=== PATIENT | male | born 1975 | race Caucasian/White ===

== ENCOUNTER 2017-06-17 12:02 | Emergency (ER) | payer MEDICAID ==
[~2017-06-17] VITALS: Ht 167.6 cm; Wt 85.1 kg
[2017-06-17 15:21] VITALS: BP 127/89
== END 2017-06-17 15:22 | disposition home or self-care (01) ==
LOC: ED 14:10
DX: S00.12XA Contusion of left eyelid and periocular area, initial encounter (principal); F10.129 Alcohol abuse with intoxication, unspecified; W01.0XXA Fall on same level from slipping, tripping and stumbling without subsequent striking against object, initial encounter; Y93.89 Activity, other specified; Y92.89 Other specified places as the place of occurrence of the external cause; Y99.8 Other external cause status
CPT/HCPCS: 70450; 70486; 72125; 99284

== ENCOUNTER 2018-05-16 06:04 | Emergency (ER) | payer SELFPAY ==
[~2018-05-16 06:04] MED LIST: CITA10TA4 PO
[2018-05-16 06:14] VITALS: BP 127/95
[2018-05-16] MEDS ORDERED: DIPH,PERTUSS(ACELL),TET VAC/PF 0.5 ML IM-VACC ONE (06:30)
== END 2018-05-16 07:52 | disposition home or self-care (01) ==
LOC: ED 07:45
DX: S43.121A Dislocation of right acromioclavicular joint, 100%-200% displacement, initial encounter (principal); S00.212A Abrasion of left eyelid and periocular area, initial encounter; F17.200 Nicotine dependence, unspecified, uncomplicated; Y04.2XXA Assault by strike against or bumped into by another person, initial encounter; Y93.89 Activity, other specified; Y92.410 Unspecified street and highway as the place of occurrence of the external cause; Y99.8 Other external cause status
CPT/HCPCS: 71046; 93005; 99284

== ENCOUNTER 2018-08-13 13:51 | Emergency (ER) | payer SELFPAY ==
[~2018-08-13] VITALS: Ht 167.6 cm; Wt 76.0 kg
[2018-08-13] MEDS ORDERED: DIAZEPAM 5 MG TABLET ONE (14:05)
[2018-08-13] MEDS ORDERED: DIAZEPAM 5 MG TABLET PO ONE (14:30)
== END 2018-08-13 15:00 | disposition home or self-care (01) ==
LOC: ED 14:45
DX: F41.1 Generalized anxiety disorder (principal); F32.9 Major depressive disorder, single episode, unspecified; F17.200 Nicotine dependence, unspecified, uncomplicated
CPT/HCPCS: 99284

== ENCOUNTER 2018-11-09 10:06 | Emergency (ER) | payer SELFPAY ==
[~2018-11-09] VITALS: Ht 167.6 cm; Wt 76.9 kg
[2018-11-09 10:13] VITALS: BP 103/69
[2018-11-09] MEDS ORDERED: DEXAMETHASONE 4 MG TABLET ONE (11:08)
--- NOTE | 2018-11-09 11:13 | NUR ---
Patient/Caregiver given discharge instructions and they have confirmed that they understand the instructions. Patient ambulatory with steady gait.
[2018-11-09] MEDS ORDERED: DEXAMETHASONE 4 MG TABLET PO ONE (11:30)
== END 2018-11-09 11:30 | disposition home or self-care (01) ==
LOC: ED 11:00
DX: J20.9 Acute bronchitis, unspecified (principal); Z91.013 Allergy to seafood
CPT/HCPCS: 71046; 99283

== ENCOUNTER 2018-11-23 13:57 | Emergency (ER) | payer MEDICAID ==
[~2018-11-23] VITALS: Ht 167.6 cm; Wt 81.0 kg
[2018-11-23 14:00] VITALS: BP 109/66
== END 2018-11-23 14:42 | disposition home or self-care (01) ==
LOC: ED 14:24
DX: T69.022A Immersion foot, left foot, initial encounter (principal); T69.021A Immersion foot, right foot, initial encounter; F17.200 Nicotine dependence, unspecified, uncomplicated; X58.XXXA Exposure to other specified factors, initial encounter; Y93.89 Activity, other specified; Y92.89 Other specified places as the place of occurrence of the external cause; Y99.8 Other external cause status
CPT/HCPCS: 99283

== ENCOUNTER 2018-12-07 07:48 | Emergency (ER) | payer MEDICAID ==
[~2018-12-07] VITALS: Ht 167.6 cm; Wt 80.0 kg
[2018-12-07] MEDS ORDERED: TRAZ50TA66 PO (08:28)
[2018-12-07] MEDS ORDERED: HYDR10TA4 PO (08:28)
[2018-12-07] MEDS ORDERED: SILVER SULF. CRM 1% , 25GM TP ONE (08:30)
[2018-12-07] MEDS ORDERED: DIPH,PERTUSS(ACELL),TET VAC/PF 0.5 ML IM-VACC ONE ×2 (08:30→08:54)
[2018-12-07] MEDS ORDERED: SILVER SULF. CRM 1% , 25GM ONE (08:55)
--- NOTE | 2018-12-07 10:00 | NUR ---
given silverdene to patient before dc home after [facility] cleaned and applied splint pt understood dc instruction pt will come back for recheck wound by erp pt up ambulated to check out vss
[2018-12-07 10:01] VITALS: BP 118/74
== END 2018-12-07 10:03 | disposition home or self-care (01) ==
LOC: ED 09:50
DX: T23.352A Burn of third degree of left palm, initial encounter (principal); T31.0 Burns involving less than 10% of body surface; F41.1 Generalized anxiety disorder; F32.9 Major depressive disorder, single episode, unspecified; Z59.0 Homelessness; X08.8XXA Exposure to other specified smoke, fire and flames, initial encounter; Y93.89 Activity, other specified; Y92.89 Other specified places as the place of occurrence of the external cause; Y99.8 Other external cause status
CPT/HCPCS: 16020; 29125; 90471; 90715; 99284

== ENCOUNTER 2018-12-09 09:41 | Emergency (ER) | payer MEDICAID ==
[~2018-12-09] VITALS: Ht 170.2 cm; Wt 79.2 kg
[~2018-12-09 09:41] MED LIST changes: +HYDR10TA4 PO; +TRAZ50TA66 PO
[2018-12-09 09:50] VITALS: BP 98/67
[2018-12-09] MEDS ORDERED: BACITRACIN ZINC OINT 500U/GM, 0.9 GM ONE (10:31)
--- NOTE | 2018-12-09 10:36 | NUR ---
Left hand crenshaw cleansed with soap and water and dried, bacitracin applied and wrapped with gauze. Patient tolerated well and denies pain at this time. Blisters intact, no erythema, no open skin.
--- NOTE | 2018-12-09 10:43 | NUR ---
Discharge instructions discussed with patient including when to return to emergency department, verbalizes understanding. Patient ambulates with steady gait to discharge desk in no acute distress.
== END 2018-12-09 10:45 | disposition home or self-care (01) ==
LOC: ED 10:18
DX: T23.252A Burn of second degree of left palm, initial encounter (principal); F32.9 Major depressive disorder, single episode, unspecified; F17.200 Nicotine dependence, unspecified, uncomplicated; X08.8XXA Exposure to other specified smoke, fire and flames, initial encounter; Y93.89 Activity, other specified; Y92.89 Other specified places as the place of occurrence of the external cause; Y99.8 Other external cause status
CPT/HCPCS: 16020; 99284

== ENCOUNTER 2019-07-23 06:54 | Emergency (ER) | payer MEDICAID ==
[~2019-07-23] VITALS: Ht 167.6 cm; Wt 79.4 kg
[2019-07-23 06:58] VITALS: BP 110/66
--- NOTE | 2019-07-23 07:34 | NUR ---
PA AT BEDSIDE REMOVING PACKING FROM WOUND RIGHT FOREARM
--- NOTE | 2019-07-23 07:53 | NUR ---
RIGHT FOREARM WOUND IRRIGATED WITH 500 ML NS.
--- NOTE | 2019-07-23 08:24 | NUR ---
AFTER WOUND REPACKED BY PA, REDRESSED WITH NONSTICK DRESSING AND DC GIVEN. PT AMBULATED TO DISCHARGE WINDOW, STEADY GAIT.
== END 2019-07-23 08:26 | disposition home or self-care (01) ==
LOC: ED 08:11
DX: L02.413 Cutaneous abscess of right upper limb (principal); F32.9 Major depressive disorder, single episode, unspecified; F41.1 Generalized anxiety disorder; F17.210 Nicotine dependence, cigarettes, uncomplicated
CPT/HCPCS: 99283

== ENCOUNTER 2019-07-25 09:42 | Emergency (ER) | payer MEDICAID ==
[~2019-07-25] VITALS: Ht 172.7 cm; Wt 81.0 kg
--- NOTE | 2019-07-25 10:10 | NUR ---
NA X 1
[2019-07-25 10:27] VITALS: BP 118/75
--- NOTE | 2019-07-25 10:35 | NUR ---
PATIENT BROUGHT BACK FROM TRIAGE FOR RIGHT ARM ABCESS RECHECK.
== END 2019-07-25 11:17 ==
LOC: ED 10:57
DX: Z48.01 Encounter for change or removal of surgical wound dressing (principal); F17.210 Nicotine dependence, cigarettes, uncomplicated
CPT/HCPCS: 99283

== ENCOUNTER 2019-07-27 10:12 | Emergency (ER) | payer MEDICAID ==
[~2019-07-27] VITALS: Ht 167.6 cm; Wt 80.3 kg
[2019-07-27 10:13] VITALS: BP 138/82
--- NOTE | 2019-07-27 10:23 | NUR ---
THIS IS A 44 YO MALE COMING IN FOR A REPACKING AND BANDAGING OF WOUND. PA IN ROOM PROCEEDING WITH WOUND CLEANING AND PACKING. PATIENT RESTING ON GURNEY, DENIES ANY NEEDS AT THIS TIME.
== END 2019-07-27 10:36 ==
LOC: ED 10:25
DX: L02.413 Cutaneous abscess of right upper limb (principal); F17.200 Nicotine dependence, unspecified, uncomplicated
CPT/HCPCS: 99283

== ENCOUNTER 2019-07-29 18:57 | Emergency (ER) | payer MEDICAID ==
[~2019-07-29] VITALS: Ht 170.2 cm; Wt 80.0 kg
[2019-07-29 19:03] VITALS: BP 108/66
--- NOTE | 2019-07-29 19:34 | NUR ---
PT RESTING IN BED. NO DISTRESS NOTED.
== END 2019-07-29 19:41 | disposition home or self-care (01) ==
LOC: ED 19:35
DX: L02.413 Cutaneous abscess of right upper limb (principal); F32.9 Major depressive disorder, single episode, unspecified; F17.200 Nicotine dependence, unspecified, uncomplicated
CPT/HCPCS: 99283

== ENCOUNTER 2019-08-28 14:32 | Emergency (ER) | payer MEDICAID ==
[~2019-08-28] VITALS: Ht 170.2 cm; Wt 80.2 kg
[2019-08-28 14:35] VITALS: BP 127/67
--- NOTE | 2019-08-28 14:54 | NUR ---
PT C/O ABCESS TO RFA. PT NOTICED PAIN TO THAT AREA X1 WEEK, BUT NOTICED SWOLLEN, REDDENED AREA TODAY. HX IV METH. LAST USED IV METH 1 WEEK AGO. CALL LIGHT IN REACH.
[2019-08-28] MEDS ORDERED: LIDOCAINE 1%-EPI 1:100K, 20ML SQ ONE (15:00)
[2019-08-28] MEDS ORDERED: KETOROLAC 30 MG/1 ML IM ONE (15:00)
[2019-08-28] MEDS ORDERED: LIDOCAINE 1%-EPI 1:100K, 20ML ONE (15:02)
[2019-08-28] MEDS ORDERED: KETOROLAC 30 MG/1 ML ONE (15:02)
--- NOTE | 2019-08-28 15:08 | NUR ---
MEDS ADMIN PER NOV. XRAY DONE. LIDOCAINE PULLED FOR PROVIDER USE.
[2019-08-28] MEDS ORDERED: BUPIVACAINE/PF 0.25% INFIL ONE (15:30)
[2019-08-28] MEDS ORDERED: BUPIVACAINE 0.25% ONE (15:35)
--- NOTE | 2019-08-28 15:35 | NUR ---
MEDS PULLED FOR PROVIDER ADMIN.
--- NOTE | 2019-08-28 16:00 | NUR ---
PROVIDER AT BEDSIDE. FOR I&D AND FINGER REDUCTION
[2019-08-28] MEDS ORDERED: HYDROcodone/APAP 5/325 TABLET PO ONE (16:09)
[2019-08-28] MEDS ORDERED: HYDROcodone/APAP 5/325 TABLET ONE (16:13)
--- NOTE | 2019-08-28 16:15 | NUR ---
MEDS ADMINISTERED PER NOV.
== END 2019-08-28 16:24 | disposition home or self-care (01) ==
LOC: ED 15:12
DX: S62.615A Displaced fracture of proximal phalanx of left ring finger, initial encounter for closed fracture (principal); L02.413 Cutaneous abscess of right upper limb; F17.200 Nicotine dependence, unspecified, uncomplicated; X58.XXXA Exposure to other specified factors, initial encounter; Y93.89 Activity, other specified; Y92.89 Other specified places as the place of occurrence of the external cause; Y99.8 Other external cause status
CPT/HCPCS: 10060; 26725; 73140; 96372; 99284; J1885

== ENCOUNTER 2019-08-30 08:00 | Emergency (ER) | payer MEDICAID ==
[~2019-08-30] VITALS: Ht 170.2 cm; Wt 82.4 kg
[2019-08-30 08:08] VITALS: BP 116/71
--- NOTE | 2019-08-30 08:34 | NUR ---
PT HERE FOR WOUND RECHECK, PACKING PLACED IN ABCESS 2 DAYS AGO WAS TOLD TO RETURN. ERPROVIDER IN TO [facility] PT. PROVIDED PROVIDER WITH SUPPLIED, HE IS TO REMOVE SUTURES AND PACKING
== END 2019-08-30 09:02 | disposition home or self-care (01) ==
LOC: ED 08:23
DX: L02.413 Cutaneous abscess of right upper limb (principal); F41.1 Generalized anxiety disorder; Z76.0 Encounter for issue of repeat prescription
CPT/HCPCS: 99283

== ENCOUNTER 2019-09-01 16:00 | Emergency (ER) | payer MEDICAID ==
[~2019-09-01] VITALS: Ht 170.2 cm; Wt 81.0 kg
[2019-09-01 16:02] VITALS: BP 115/74
--- NOTE | 2019-09-01 16:12 | NUR ---
PT HERE TO GET WOUND RECHECKED, STATED MISSED IV DRUG USE APPROX. 2 WEEKS AGO. PT STATES HAS NOT BEEN ON ABX.
--- NOTE | 2019-09-01 16:36 | NUR ---
Patient/Caregiver given discharge instructions and they have confirmed that they understand the instructions. Patient ambulatory with steady gait.
== END 2019-09-01 16:38 | disposition home or self-care (01) ==
LOC: ED 16:30
DX: S62.605A Fracture of unspecified phalanx of left ring finger, initial encounter for closed fracture (principal); L02.512 Cutaneous abscess of left hand; F10.10 Alcohol abuse, uncomplicated; F15.10 Other stimulant abuse, uncomplicated; F17.200 Nicotine dependence, unspecified, uncomplicated; Z72.9 Problem related to lifestyle, unspecified; Z75.9 Unspecified problem related to medical facilities and other health care; Z91.14 Patient's other noncompliance with medication regimen; Y90.9 Presence of alcohol in blood, level not specified
CPT/HCPCS: 99283

== ENCOUNTER 2019-09-04 09:27 | Emergency (ER) | payer MEDICAID ==
[~2019-09-04] VITALS: Ht 167.6 cm; Wt 81.0 kg
[2019-09-04 09:35] VITALS: BP 119/72
--- NOTE | 2019-09-04 09:49 | NUR ---
PT HERE FOR PACKING REMOVAL OF ABSCESS. STATES HE WAS UNABLE TO FILL ABX WHEN HE WAS LAST HERE.
[2019-09-04] MEDS ORDERED: SULFAMETH./TRIMETHOPRIM DS 800MG/160MG TABLET ONE (10:09)
[2019-09-04] MEDS ORDERED: CEPHALEXIN 500 MG CAPSULE ONE (10:09)
[2019-09-04] MEDS ORDERED: CEPHALEXIN 500 MG CAPSULE PO ONE (10:30)
[2019-09-04] MEDS ORDERED: SULFAMETH./TRIMETHOPRIM DS 800MG/160MG TABLET PO ONE (10:30)
== END 2019-09-04 10:31 | disposition home or self-care (01) ==
LOC: ED 10:25
DX: Z48.01 Encounter for change or removal of surgical wound dressing (principal)
CPT/HCPCS: 99283

== ENCOUNTER 2020-03-05 03:40 | Emergency (ER) | payer MEDICAID ==
[~2020-03-05] VITALS: Ht 167.6 cm; Wt 70.0 kg
[~2020-03-05 03:40] MED LIST changes: +HYDR-2995 PO; -HYDR10TA4 PO
[2020-03-05 03:41] VITALS: BP 123/81
[2020-03-05] MEDS ORDERED: LORazepam 1MG TABLET PO ONE (05:00)
== END 2020-03-05 05:14 | disposition home or self-care (01) ==
LOC: ED 04:53
DX: F10.10 Alcohol abuse, uncomplicated (principal); F15.10 Other stimulant abuse, uncomplicated; R45.1 Restlessness and agitation; R41.1 Anterograde amnesia; Z72.0 Tobacco use; Y90.0 Blood alcohol level of less than 20 mg/100 ml
CPT/HCPCS: 99283

== ENCOUNTER 2020-04-16 22:23 | Emergency (ER) | payer MEDICAID ==
[2020-04-16] MEDS ORDERED: SODIUM CHLORIDE FLUSH 10ML SYR IVF ONE (23:30)
[2020-04-16] MEDS ORDERED: SODIUM CHLORIDE 0.9% 1,000ML IVBOLUS ONE (23:30)
[2020-04-16 23:42] LABS: BASOPHILS # (AUTO) 0.04 x10^3/uL (0-0.1); BASOPHILS % (AUTO) 1 % (0-1); EOSINOPHILS # (AUTO) 0.06 x10^3/uL (0-0.4); EOSINOPHILS % (AUTO) 1 % (1-7); LYMPHOCYTES # (AUTO) 2.61 x10^3/uL (1-3.4); LYMPHOCYTES % (AUTO) 29 % (22-44); MD NO; MEAN CORPUSCULAR HEMOGLOBIN 30.8 pg (27.5-34.5); MEAN CORPUSCULAR HGB CONC 33.5 g/dL (33.2-36.2); MEAN PLATELET VOLUME 8.4 fL (7.4-10.4); MONOCYTES # (AUTO) 0.91 x10^3/uL (0.2-0.8); MONOCYTES % (AUTO) 10 % (2-9); NEUTROPHILS # (AUTO) 5.46 x10^3/uL (1.8-6.8); NEUTROPHILS % (AUTO) 60 % (42-75); PLATELET COUNT 204 x10^3/uL (130-400); RED BLOOD COUNT 4.55 x10^6/uL (4.38-5.82); RED CELL DISTRIBUTION WIDTH 14.2 % (9.4-14.8)
[2020-04-17 00:04] LABS: ALANINE AMINOTRANSFERASE 221 U/L (12-78); ALBUMIN 3.8 g/dL (3.4-5.0); ANION GAP 6 mmol/L (5-15); CALCIUM 8.1 mg/dL (8.5-10.1); CHLORIDE 111 mmol/L (98-107)
[2020-04-17 00:18] LABS: ALKALINE PHOSPHATASE 70 U/L (45-117); BILIRUBIN,TOTAL 0.7 mg/dL (0.2-1.0); CREATINE KINASE, TOTAL 1731 U/L (39-308); CREATININE 0.94 mg/dL (0.7-1.3); TOTAL PROTEIN 7.2 g/dL (6.4-8.2)
[2020-04-17] MEDS ORDERED: SODIUM CHLORIDE 0.9% 1,000ML IVBOLUS ONE (00:30)
[2020-04-17 01:10] VITALS: BP 146/94
== END 2020-04-17 01:54 | disposition home or self-care (01) ==
LOC: ED 22:57 → MERGE 22:57 → ED 04-17 01:54
DX: R53.1 Weakness (principal); E86.0 Dehydration; L55.0 Sunburn of first degree; R00.0 Tachycardia, unspecified; F17.210 Nicotine dependence, cigarettes, uncomplicated
CPT/HCPCS: 36415; 80053; 82550; 83605; 85025; 96360; 96361; 99283; J7030

== ENCOUNTER 2020-06-24 11:23 | Emergency (ER) | payer MEDICAID ==
[~2020-06-24] VITALS: Ht 167.6 cm; Wt 81.5 kg
[2020-06-24 11:28] VITALS: BP 124/82
[2020-06-24] MEDS ORDERED: LIDOCAINE-MPF 1%, 5ML ONE (11:38)
[2020-06-24] MEDS ORDERED: DIPH,PERTUSS(ACELL),TET VAC/PF 0.5 ML IM-VACC ONE ×2 (11:42→12:00)
--- NOTE | 2020-06-24 11:47 | NUR ---
TDAP ADMIN PER MAR. NELSON PULLED FOR PROVIDER ADMIN.
[2020-06-24] MEDS ORDERED: LIDOCAINE-MPF 1%, 5ML INFIL ONE (12:00)
--- NOTE | 2020-06-24 12:20 | NUR ---
PROVIDER AT BEDSIDE FOR I&D.
== END 2020-06-24 12:51 | disposition home or self-care (01) ==
LOC: ED 11:44
DX: L02.414 Cutaneous abscess of left upper limb (principal)
CPT/HCPCS: 10060; 90471; 90715; 99283